=== PATIENT | male | born 1995 | race Two or more races ===

== ENCOUNTER → 2025-01-03 | Emergency (ER) | payer OTHER ==
[~2025-01-03] VITALS: Ht 182.9 cm; Wt 75.7 kg
[~2025-01-03] MED LIST: KETOROLAC TROMETHAMINE 60 MG VIAL IM ONE
[2025-01-03 17:55] LABS: BASO % 0.5 % (0.1-1.2); EOS # 0.16 (0.04-0.54); EOS % 2.1 % (0.7-7.0); HEMATOCRIT 41.7 % (40.1-51.0); HEMOGLOBIN 14.2 g/dL (13.7-17.5); LYMPH # 1.98 (1.18-3.74); LYMPH % 25.8 % (19.3-53.1); MEAN CORPUSCULAR HEMOGLOBIN 29.5 pg (25.6-32.2); MONO % 6.5 % (4.7-12.5); NEUT # 4.97 (1.56-6.13); PLATELET COUNT 254 K/uL (163-369); RED BLOOD COUNT 4.81 M/uL (4.63-6.08); RED CELL DISTRIBUTION WIDTH 12.9 % (11.6-14.4)
[2025-01-03 18:26] LABS: ALBUMIN 3.6 gm/dL (3.4-5.0); BILIRUBIN TOTAL 1.12 mg/dL (0.3-1.2); CALCIUM 9.2 mg/dL (8.5-10.1); GFR 88.97; GLOBULINA 3.5 G/DL (2.4-3.5); POTASSIUM 4.31 mEq/L (3.5-5.1); TOTAL PROTEIN 7.1 gm/dL (6.4-8.2)
== END | disposition left against medical advice (07) ==
LOC: ER 14:07
PROVIDERS: Preventive Medicine Public Health & General Preventive Medicine
DX: K13.79 Other lesions of oral mucosa (principal); Z87.09 Personal history of other diseases of the respiratory system; E80.4 Gilbert syndrome